=== PATIENT | female | born 1960 | race African-American/Black ===

== ENCOUNTER 2018-09-08 16:34 | Emergency (ER) | payer OTHER ==
[~2018-09-08] VITALS: Ht 165.1 cm; Wt 108.0 kg
[~2018-09-08 16:34] MED LIST: HYDROCHLOROTHIA25 M2 PO; PENICILLIN V P500 MG PO; PRILOSEC OTC20 MG PO
[2018-09-08] MEDS ORDERED: PREDNISONE 20 M20 MG PO (17:42)
[2018-09-08] MEDS ORDERED: DOXYCYCLINE 10100 MG PO (17:42)
[2018-09-08] MEDS ORDERED: PROMETH-CODEIN 65 ML PO (17:43)
[2018-09-08 17:51] VITALS: BP 137/78
== END 2018-09-08 17:55 | disposition home or self-care (01) ==
LOC: ER 16:34
DX: J45.901 Unspecified asthma with (acute) exacerbation (principal); I10 Essential (primary) hypertension

== ENCOUNTER 2020-05-13 18:51 | Emergency (ER) | payer OTHER ==
[~2020-05-13] VITALS: Ht 165.1 cm; Wt 100.2 kg
[~2020-05-13 18:51] MED LIST changes: +DOXYCYCLINE 10100 MG PO; +PREDNISONE 20 M20 MG PO; +PROMETH-CODEIN 65 ML PO
[2020-05-13 20:18] LABS: ABSOLUTE NEUTROPHILS 3.2 thou/uL (1.4-8.2); BASOPHILS 0.5 % (0.0-2.0); EOSINOPHILS 0.2 % (0.0-3.0); HEMATOCRIT 39.3 % (37.0-47.0); HEMOGLOBIN 13.4 gm/dL (12.0-15.0); LYMPHOCYTES 27.1 % (24.0-44.0); MCH 29.6 pg (26.0-34.0); MCV 87.2 fL (80.0-100.0); MONOCYTES 11.8 % (1.0-8.0); PLATELET COUNT 150 thou/uL (150-400); POLYS 60.4 % (36.0-66.0); RBC 4.51 mil/uL (4.20-5.00); RDW 13.1 % (10.5-14.5); WBC 5.3 thou/uL (4.0-11.0)
[2020-05-13] MEDS ORDERED: NORVASC 2.5 MG2.5 M1 PO (20:47)
[2020-05-13] MEDS ORDERED: HYDROCHLOROTHIA25 M2 PO (20:47)
[2020-05-13] MEDS ORDERED: MOMETASONE FUROA1 GM NASAL (20:48)
[2020-05-13] MEDS ORDERED: ZYRTEC10 M5 PO (20:48)
[2020-05-13 21:07] LABS: ANION GAP 9 mmol/L (7-16); BUN 11 mg/dL (7-18); CALCIUM 8.3 mg/dL (8.5-10.1); CHLORIDE 98 mmol/L (98-107); CO2 30 mmol/L (21-32); CREATININE 0.9 mg/dL (0.6-1.0); GLUCOSE 113 mg/dL (74-106); SGOT 27 U/L (15-37); SGPT 29 U/L (30-65); SODIUM 137 mmol/L (136-145); TOTAL BILIRUBIN 0.4 mg/dL (0.2-1.0); TOTAL PROTEIN 7.3 g/dL (6.4-8.2); TROPONIN-I <0.06 ng/mL (<0.06)
[2020-05-13 21:12] LABS: POTASSIUM 2.2 mmol/L (3.5-5.1)
[2020-05-13] MEDS ORDERED: POTASSIUM20 PO (22:00)
[2020-05-13] MEDS ORDERED: ZPAK PO (22:00)
[2020-05-13 22:13] VITALS: BP 135/66
--- NOTE | 2020-05-15 07:32 | EKG ---
[facility] [place] [address] ELECTROCARDIOGRAM REPORT Name: LIZA HALE Room #: DEP [facility]#: [id number] Admission: 05/13/20 Attend Phys: Discharge: 05/13/20 Date of : 58 Report #: [id number] THIS REPORT FOR: cc: [facility] - Clinic physician unknown [facility] - Clinic physician unknown David Schwartz MD [facility] THIS REPORT FOR: //name// [facility] ED Test Date: 2020-05-13 Test Time: 19:45:25 Pat Name: LIZA HALE Department: Room: Gender: F [employer] Meter Servicer: LIBBY : 1960 Requested By: Stewart Obando Order Number: [id number] MD: David Schwartz Measurements Intervals [place] Rate: 95 P: 74 CT: 155 QRS: 28 QRSD: 101 T: 196 QT: 396 QTc: 498 Interpretive Statements Sinus rhythm Nonspecific T abnormalities, diffuse leads Borderline prolonged QT interval Baseline wander in lead(s) II,III,aVF No previous ECG available for comparison Electronically Signed On 05-15-2020 7:32:42 WINDOWS APPLICATION DEVELOPER by David Schwartz [email or web address] <ELECTRONICALLY SIGNED> By: David Schwartz MD, FACC 05/15/20 0732 [id number] David Schwartz MD, FAC /EPI
== END 2020-05-13 22:14 | disposition home or self-care (01) ==
LOC: ER 18:51
PROVIDERS: Nurse Practitioner
DX: E87.6 Hypokalemia (principal); J18.9 Pneumonia, unspecified organism; I10 Essential (primary) hypertension; Z79.899 Other long term (current) drug therapy; Z20.828 Contact with and (suspected) exposure to other viral communicable diseases

== ENCOUNTER 2020-10-16 14:52 | Emergency (ER) | payer BC, OTHER ==
[~2020-10-16] VITALS: Ht 165.1 cm; Wt 98.4 kg
[~2020-10-16 14:52] MED LIST changes: +MOMETASONE FUROA1 GM NASAL; +NORVASC 2.5 MG2.5 M1 PO; +POTASSIUM20 PO; +ZPAK PO; +ZYRTEC10 M5 PO
[2020-10-16] MEDS ORDERED: FLUOCINONI0.05 %/31 TOP (15:09)
[2020-10-16] MEDS ORDERED: ULTRAM 50MG TAB50 MG PO (15:42)
[2020-10-16] MEDS ORDERED: ZANAFLEX4 MG PO (15:42)
[2020-10-16 16:00] VITALS: BP 148/73
== END 2020-10-16 16:13 | disposition home or self-care (01) ==
LOC: ER 14:52
DX: M43.6 Torticollis (principal); I10 Essential (primary) hypertension; K21.9 Gastro-esophageal reflux disease without esophagitis; J45.909 Unspecified asthma, uncomplicated

== ENCOUNTER 2021-02-27 17:38 | Emergency (ER) | payer BC, OTHER ==
[~2021-02-27] VITALS: Ht 165.1 cm; Wt 100.2 kg
[~2021-02-27 17:38] MED LIST changes: +FLUOCINONI0.05 %/31 TOP; +ULTRAM 50MG TAB50 MG PO; +ZANAFLEX4 MG PO
[2021-02-27] MEDS ORDERED: MOBIC15 MG PO (21:48)
[2021-02-27 22:00] VITALS: BP 117/90
== END 2021-02-27 22:00 | disposition home or self-care (01) ==
LOC: ER 17:38
PROVIDERS: Emergency Medicine
DX: R07.89 Other chest pain (principal); Z20.822 Contact with and (suspected) exposure to COVID-19; R51.9 Headache, unspecified; I10 Essential (primary) hypertension; K21.9 Gastro-esophageal reflux disease without esophagitis; J45.909 Unspecified asthma, uncomplicated; Z79.899 Other long term (current) drug therapy; Z79.891 Long term (current) use of opiate analgesic